=== PATIENT | male | born 1960 | race Caucasian/White ===

== ENCOUNTER 2023-01-11 12:30 | Inpatient (IN) | payer OTHER, BC ==
[2023-01-11] MEDS ORDERED: Adenosine 6 MG/2 ML SDV IVPUSH ONE (12:47)
[2023-01-11] MEDS ORDERED: Diltiazem 25 MG/5 ML SDV IVPUSH ONE (12:52)
[2023-01-11] MEDS ORDERED: Diltiazem 100 MG in Sodium Chloride 0.9% 100 ML IV SCH (13:00)
[2023-01-11] MEDS ORDERED: Furosemide 40 MG/4 ML VIAL IVPUSH ONE (13:08)
[2023-01-11 13:26] LABS: ESTIMATED GFR 68 mL/min (>60)
[2023-01-11] MEDS ORDERED: Nitroglycerin 0.4 MG Tab.SL SL ONE (13:28)
[2023-01-11] MEDS ORDERED: Aspirin 81 MG Tab.Chew PO ONE (13:28)
[2023-01-11] MEDS ORDERED: Magnesium Sulfate/Water 2 GM in Premix Bag 1 BAG IV ONE (13:51)
[2023-01-11 15:30] LABS: CORONAVIRUS COVID-19 NAA NEGATIVE (NEGATIVE)
[2023-01-11] MEDS: Insulin Lispro 100 Unit/ML 3 ML KwikPen SUBCUT SCH ×2 (17:25→21:01)
[2023-01-11] MEDS ORDERED: Sodium Chloride 0.9% 10 ML Syringe FLUSH PRN (17:29)
[2023-01-11] MEDS ORDERED: Ondansetron 4 MG/2 ML SDV IV PRN (17:29)
[2023-01-11] MEDS ORDERED: 50% Dextrose in Water 50 ML Syringe IV PRN (17:29)
[2023-01-11] MEDS ORDERED: Glucose Gel 15 GM in 37.5 GM Tube PO PRN (17:29)
[2023-01-11] MEDS ORDERED: Acetaminophen 325 MG Tab PO PRN (17:29)
[2023-01-11] MEDS ORDERED: Enoxaparin 40 MG/0.4 ML Syringe SUBCUT SCH (18:00)
[2023-01-11] MEDS: metFORMIN 500 MG Tab PO SCH (18:13)
[2023-01-11] MEDS: Diltiazem 100 MG in Sodium Chloride 0.9% 100 ML IV SCH (19:45)
[2023-01-12] MEDS: Diltiazem 100 MG in Sodium Chloride 0.9% 100 ML IV SCH (02:28)
[2023-01-12 05:20] LABS: TROPONIN I HIGH SENSITIVITY 100.8 pg/mL (<=60.3)
[2023-01-12] MEDS: Insulin Lispro 100 Unit/ML 3 ML KwikPen SUBCUT SCH ×4 (07:32→20:18)
[2023-01-12] MEDS: metFORMIN 500 MG Tab PO SCH ×2 (07:35→17:09)
[2023-01-12] MEDS ORDERED: Furosemide 40 MG/4 ML VIAL IVPUSH ONE ×2 (07:57→18:00)
[2023-01-12] MEDS: Diltiazem 120 MG Cap.CD PO SCH (08:43)
[2023-01-12] MEDS ORDERED: Apixaban 5 MG Tab PO SCH (12:00)
[2023-01-12] MEDS: Apixaban 5 MG Tab PO SCH ×2 (12:06→20:07)
[2023-01-12] MEDS ORDERED: Furosemide 40 MG, Furosemide 20 MG IVPUSH ONE ×2 (18:00)
[2023-01-12] MEDS: Melatonin 3 MG Tab PO SCH (20:07)
[2023-01-13] MEDS: Insulin Lispro 100 Unit/ML 3 ML KwikPen SUBCUT SCH ×4 (07:48→21:24)
[2023-01-13] MEDS: metFORMIN 500 MG Tab PO SCH ×2 (07:48→17:17)
[2023-01-13] MEDS ORDERED: Furosemide 40 MG/4 ML VIAL IVPUSH ONE ×2 (09:15→18:45)
[2023-01-13] MEDS: Lisinopril 5 MG Tab PO SCH (09:44)
[2023-01-13] MEDS: Apixaban 5 MG Tab PO SCH ×2 (09:44→21:26)
[2023-01-13] MEDS ORDERED: Metoprolol Tartrate 25 MG Tab PO SCH (10:00)
[2023-01-13] MEDS ORDERED: Sodium Chloride 0.9% 500 ML IV ONE (15:47)
[2023-01-13] MEDS ORDERED: Norepinephrine Bit/D5W Premix 250 ML ONE (16:47)
[2023-01-13] MEDS: Norepinephrine Bit/D5W Premix 4 MG in Premix Bag 1 BAG IV SCH (16:52)
[2023-01-13] MEDS: Metoprolol Tartrate 25 MG Tab PO SCH ×2 (18:03→23:44)
[2023-01-13] MEDS: Melatonin 3 MG Tab PO SCH (21:26)
[2023-01-14] MEDS: Norepinephrine Bit/D5W Premix 4 MG in Premix Bag 1 BAG IV SCH (06:23)
[2023-01-14] MEDS: Metoprolol Tartrate 25 MG Tab PO SCH ×3 (06:25→21:40)
[2023-01-14] MEDS: Insulin Lispro 100 Unit/ML 3 ML KwikPen SUBCUT SCH (07:55)
[2023-01-14] MEDS: metFORMIN 500 MG Tab PO SCH ×2 (07:58→17:30)
[2023-01-14] MEDS: Apixaban 5 MG Tab PO SCH ×2 (08:31→21:39)
[2023-01-14] MEDS: Lisinopril 5 MG Tab PO SCH (09:10)
[2023-01-14] MEDS ORDERED: Digoxin 500 MCG/2 ML Amp IVPUSH ONE (14:30)
[2023-01-14] MEDS ORDERED: Metoprolol Tartrate 25 MG Tab PO SCH (21:00)
[2023-01-14] MEDS: atorvaSTATin 20 MG Tab PO SCH (21:39)
[2023-01-14] MEDS: Melatonin 3 MG Tab PO SCH (21:40)
[2023-01-15] MEDS: Metoprolol Tartrate 25 MG Tab PO SCH ×3 (06:28→22:38)
[2023-01-15] MEDS: metFORMIN 500 MG Tab PO SCH ×2 (08:06→16:34)
[2023-01-15] MEDS: Apixaban 5 MG Tab PO SCH ×2 (08:06→20:01)
[2023-01-15] MEDS: Magnesium Sulfate/Water 2 GM in Premix Bag 1 BAG IV SCH ×2 (08:51→15:25)
[2023-01-15] MEDS ORDERED: Furosemide 20 MG/2 ML VIAL IVPUSH ONE (10:45)
[2023-01-15] MEDS: atorvaSTATin 20 MG Tab PO SCH (20:00)
[2023-01-15] MEDS: Melatonin 3 MG Tab PO SCH (20:00)
[2023-01-15] MEDS: Diltiazem 120 MG Cap.CD PO SCH (22:34)
[2023-01-15] MEDS: Insulin Lispro 100 Unit/ML 3 ML KwikPen SUBCUT SCH (22:34)
[2023-01-16] MEDS: Metoprolol Tartrate 25 MG Tab PO SCH (05:57)
[2023-01-16] MEDS: metFORMIN 500 MG Tab PO SCH (08:47)
[2023-01-16] MEDS: Apixaban 5 MG Tab PO SCH (08:47)
[2023-01-16] MEDS ORDERED: Metoprolol Succinate 25 MG Tab.ER PO SCH (14:00)
== END 2023-01-16 14:12 | disposition home or self-care (01) | DRG 291 ==
LOC: JP.ED 12:30 → JP.ICU 14:54 → JP.MS 01-15 21:27
PROVIDERS: ADMIT Hospitalist; ATTEND Internal Medicine
DX: I50.21 Acute systolic (congestive) heart failure (principal); J96.01 Acute respiratory failure with hypoxia; N17.9 Acute kidney failure, unspecified; I24.8 Other forms of acute ischemic heart disease; I48.91 Unspecified atrial fibrillation; E78.00 Pure hypercholesterolemia, unspecified; Z20.822 Contact with and (suspected) exposure to COVID-19; E66.9 Obesity, unspecified; I10 Essential (primary) hypertension; E11.9 Type 2 diabetes mellitus without complications; I25.10 Atherosclerotic heart disease of native coronary artery without angina pectoris; Z79.84 Long term (current) use of oral hypoglycemic drugs; Z79.899 Other long term (current) drug therapy; Z87.891 Personal history of nicotine dependence; Z68.38 Body mass index [BMI] 38.0-38.9, adult
CPT/HCPCS: 0241U; 36415; 71045; 71045-26; 80048; 80053; 82947; 83735; 83880; 84484; 85025; 93005; 93010; 93306; 96365; 96366; 96375; 99222; 99232; 99233; 99239; 99285; 99285-25; A9270-GY; J0153; J1160; J1650; J1815; J1940; J3475; J3490; J7040